=== PATIENT | female | born 1955 | race Caucasian/White ===

== ENCOUNTER → 2024-04-18 06:25 | Day surgery (SDC) | payer BC, SELFPAY ==
[2024-04-18 09:07] LABS: Glucose - Point of Care 122 mg/dl (70-99)
== END ==
LOC: GI 06:25
PROVIDERS: ATTENDING PHYSICIAN Internal Medicine Gastroenterology
DX: R13.10 Dysphagia, unspecified (principal); R11.0 Nausea; K22.89 Other specified disease of esophagus; K31.89 Other diseases of stomach and duodenum; K57.30 Diverticulosis of large intestine without perforation or abscess without bleeding; K55.21 Angiodysplasia of colon with hemorrhage; K64.0 First degree hemorrhoids; K62.5 Hemorrhage of anus and rectum; R19.7 Diarrhea, unspecified
CPT/HCPCS: 45380; 43239; 88305; 82962; 88342

== ENCOUNTER → 2024-04-22 08:29 | Outpatient (REF) | payer BC, SELFPAY | LOC: HWRAD 08:29 | PROVIDERS: ATTENDING PHYSICIAN Internal Medicine Gastroenterology; FAMILY PHYSICIAN Physician Assistant Medical | DX: E66.01 Morbid (severe) obesity due to excess calories (principal) | CPT/HCPCS: 76700 ==

== ENCOUNTER 2024-05-27 02:41 | Inpatient (IN) | payer BC, SELFPAY ==
[2024-05-26 21:26] VITALS: BP 123/87
[2024-05-26 21:47] LABS: % Basophils 0.6 % (0-2); % Eosinophils 1.7 % (0-6); % Immature Granulocytes 0.8 % (0-0.5); % Lymphocytes 13.3 % (20.5-51.1); % Monocytes 6.1 % (1.7-9.3); % Neutrophils 77.5 % (42.2-75.2); Absolute Basophils 0.1 10^3/uL (0-0.2); Absolute Eosinophils 0.3 10^3/uL (0-0.7); Absolute Immature Granulocytes 0.1 10^3/uL (0-0.05); Absolute Lymphocytes 2.3 10^3/uL (1.2-3.4); Absolute Neutrophils 13.1 10^3/uL (1.4-6.5); Hematocrit 39.7 % (37.0-47.0); Hemoglobin 13.2 g/dL (12.0-16.0); Mean Corp Hgb Conc. 33.2 g/dL (33.0-37.0); Mean Corpuscular Hgb 30.2 pg (27.0-31.0); Mean Corpuscular Volume 90.8 fL (81.0-99.0); Mean Platelet Volume 10.1 fL (7.4-10.4); Nucleated Red Blood Cells % 0 %; Platelet Count 301 10^3/uL (130-400); Red Blood Cell Count 4.37 10^6/uL (4.20-5.40); Red Cell Dist. Width 13.6 % (11.5-14.5); White Blood Cell Count 16.9 10^3/uL (4.8-10.8)
[2024-05-26 22:00] LABS: ALT (SGPT) 25 U/L (0-35); AST (SGOT) 31 U/L (14-36); Albumin 4.1 g/dl (3.5-5.0); Alkaline Phosphatase 82 U/L (38-126); Blood Urea Nitrogen 19 mg/dl (7-17); Calcium 10.5 mg/dl (8.4-10.2); Carbon Dioxide 30 mmol/L (22-30); Chloride 99 mmol/L (98-107); Glucose 183 mg/dl (70-99); Potassium 4.2 mmol/L (3.5-5.1); Sodium 139 mmol/L (135-145); Total Bilirubin 0.8 mg/dl (0.2-1.3); Total Protein 7.3 g/dl (6.3-8.2); eGFR 54.73
[2024-05-26 22:13] LABS: Troponin I < 0.012 ng/ml
[2024-05-26 22:54] VITALS: BP 114/73
[2024-05-26 23:00] VITALS: BP 114/71
[2024-05-26 23:01] VITALS: BMI 40.5
[2024-05-26 23:35] VITALS: BP 138/70
[2024-05-26 23:36] LABS: NT-proBNP 63.6 pg/ml
[2024-05-26] MEDS: DUONEB 3 ML INH (23:39)
[2024-05-27] VITALS (15 sets, daily range): BP systolic 94–128; BP diastolic 54–86; BMI 39.6
[2024-05-27] MEDS: DUONEB 3 ML INH ×6 (00:39→19:39)
--- NOTE | 2024-05-27 01:50 | ED.GENMED ---
History of Present Illness
General
Chief Complaint: Chest Pain
Source: patient and family
Time Seen by Provider: 05/26/24 22:38
History of Present Illness
History of Present Illness:
68-year-old female with a history of diabetes, asthma, obstructive sleep apnea who presents with left lower extremity swelling. Patient also reports some chest pain and back pain and pain with breathing deeply. She also feels short of breath.
Family states she does appear more short of breath than usual. She does have a history of asthma. She often wears CPAP and oxygen at night. No fevers.
Past History
Past History
ED Past Medical History: Asthma, GERD, HTN, Hypercholesterolemia, IDDM and Other (Diverticulitis with perf and abscess, Hemorroids, Sleep apnea and uses CPAP, PNA, renal calcluls, retroperitoneal pericolonic abcess with drainage)
ED Past Surgical History: (X 2)
Social History
Tobacco: Non-smoker
Alcohol: None
Personal:
Living: with family
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
Family History
Family History: CAD (Several brothers as well as mother with history of coronary artery disease.)
Phy Exam
Physical Exam
Physical Exam:
CONSTITUTIONAL Patient alert and oriented to person, place and time. Well-appearing. Vital signs reviewed.
HEAD atraumatic, normocephalic.
EYES eyelids normal to inspection, , Extraocular muscles intact, Conjunctiva normal, Sclera normal.
NECK normal range of motion, Trachea midline, no jugular venous distention.
RESPIRATORY CHEST mild respiratory distress noted, Chest expansion equal, poor air movement bilateral
CARDIOVASCULAR regular and tachycardic, Heart sounds normal.
BACK normal inspection, no obvious deformities
UPPER EXTREMITY range of motion normal, Motor strength normal, no cyanosis, no edema.
LOWER EXTREMITY range of motion normal, Motor strength normal, no cyanosis, left lower extremity is markedly more swollen than the right. There is a scabbed lesion to the anterior tineo. There is a diffuse mild redness and increased warmth of the
left lower extremity. Normal perfusion bilaterally.
NEURO Speech normal, No focal motor deficits, Ellington coma scale 15, Memory normal, Cranial Nerves intact to screening exam.
SKIN skin warm, dry, and normal in color.
PSYCHIATRIC patient oriented to person place and time, Normal affect.
Scores
Heart Score for Chest Pain Patients
STEMI patient?: No
History: Slightly or Non-Suspicious
ECG: Normal
Age: >/= 65 years
Risk Factors: >/= 3 Risk Factors or History of CAD
Troponin: </= Normal Limit
Heart Score for Chest Pain Patients: 4
Heart Score Risk: 20.3% MACE over next 6 weeks
Course
Orders/Labs/Results
Orders:
Orders
05/26/24 21:19
Electrocardiogram (*1) Routine
Reason for Study: Chest Pain
EKG- Treatment ONCE
05/26/24 21:37
Complete Blood Count/With Diff Urgent
Comprehensive Metabolic Panel Urgent
NT-proBNP Urgent
Comment: ADD ON
Troponin I Urgent
05/26/24 22:51
CT Chest Pe Study Urgent
Comment:
Reason For Exam: CP, sob, Leg swelling
05/26/24 22:52
Add On- LAB Urgent
Tests Added?: bnp
05/26/24 23:38
Ipratropium/Albuterol Sulfate [Duoneb] 3 ml .ROUTE .STK-MED ONE
Ipratropium/Albuterol Sulfate [Duoneb] 3 ml INH R NOW ONE
05/27/24 00:00
US Periph Venous LOWER Ext LT Urgent
Reason For Exam: swelling
05/27/24 00:23
Ipratropium/Albuterol Sulfate [Duoneb] 3 ml INH R NOW ONE
Ipratropium/Albuterol Sulfate [Duoneb] 3 ml INH R NOW STA
05/27/24 01:48
Dexamethasone Sod Phosphate [Decadron] 10 mg IV NOW STA
05/27/24 01:49
Vancomycin [Vancocin] 2,000 mg 0.9% Sodium Chloride 500 ml [Nss] 500 ml IV NOW
Abnormal Lab Results
05/26/24
21:37
WBC 16.9 H 10^3/uL
(4.8-10.8)
Abs Immat Gran (auto) 0.1 H 10^3/uL
(0-0.05)
Absolute Neuts (auto) 13.1 H 10^3/uL
(1.4-6.5)
Absolute Monos (auto) 1.0 H 10^3/uL
(0.1-0.6)
Immature Gran % 0.8 H %
(0-0.5)
Neutrophils % 77.5 H %
(42.2-75.2)
Lymphocytes % 13.3 L %
(20.5-51.1)
BUN 19 H mg/dl
(7-17)
Creatinine 1.1 H mg/dL
(0.6-1.0)
Glucose 183 H mg/dl
(70-99)
Calcium 10.5 H mg/dl
(8.4-10.2)
05/26/24 21:37
05/26/24 21:37
Vital Signs
Initial and Last Documented VS:
Initial Vital Signs
Temp Pulse Resp BP Pulse Ox
98 F 112 22 123/87 97
05/26/24 21:26 05/26/24 21:26 05/26/24 21:26 05/26/24 21:26 05/26/24 21:26
Last Documented Vital Signs
Temp Pulse Resp BP Pulse Ox
98 F 114 26 94/78 95
05/26/24 21:26 05/27/24 01:00 05/27/24 01:00 05/27/24 01:00 05/27/24 01:00
MDM/Problems Addressed
MDM/Problems Addressed:
Acute cellulitis, acute hyperglycemia, acute asthma exacerbation
*Radiology
Radiology exam reviewed: radiology read reviewed
*Pulse Oximetry
Patient hypoxic: yes (Mild)
*EKG
Interpreted by ED Provider?: Yes
Interpretation: abnormal
Rate: tachycardiac
Rhythm: sinus
[place]: normal axis
Ischemia: no ischemia
*Charge Entry Interpretation
Rate: tachycardiac
Interpretation: abnormal
Rhythm: sinus
*Critical Care Note
Total Time (30-74mins, 75-104mins- exclusive of procedures): Not Applicable
Data Reviewed
Review of Other/Old Records Reveals: Discharge Summary (Prior discharge summary reviewed)
Source: patient and family
Patient Management
Discussion with other providers: Hospitalist
Escalation/DeEscalation of care consider admission/obs:
68-year-old female presents with left lower extremity swelling. Knox concern was for PE and DVT. However, PE study and DVT study negative luckily. On reassessment her left lower extremity is more red than the right when compared. Given her
leukocytosis, cyst cellulitis. Also after bronchodilator she does feel that her breathing is improved. Cover with Decadron. Concern of tremor in light of history of diabetes.
ED Attending Note
-
Portions of this chart may have been created with voice recognition software.� Occasional wrong word or��sound alike� substitutions may have occurred due to the inherent limitations of voice recognition software.
Discharge Plan
Departure
Patient Disposition: Admit
Date of Disposition: 05/27/24
Time of Disposition: 01:51
Admit to: Telemetry
Presentation/result/management discussed w/ accepting MD/DO: Hospitalist
Discharge Problem:
Cellulitis, Acute asthma exacerbation
Prescriptions:
No Action
venlafaxine [Effexor XR] 150 MG capsule,extended release 24hr
150 mg PO QPM
metformin 500 mg Tablet Extended Release 24 Hr
500 mg PO QPM
Humalog U-100 Insulin 100 unit/mL Cartridge
1 sliding scale dose SC DIRECTED
Humalog U-100 Insulin 100 unit/mL Cartridge
0 unit SC Q1H
Patient Comments:
VARYING BASAL RATE
rosuvastatin 40 mg Tablet
40 mg PO QPM
Gemtesa 75 mg Tablet
75 mg PO QPM
ipratropium-albuterol 0.5 mg-3 mg(2.5 mg base)/3 mL Solution For Nebulization
3 ml INHALATION QID
fexofenadine 180 mg Tablet
180 mg PO QPM
fluticasone propion-salmeterol [Advair Diskus] 500-50 mcg/dose Blister With Device
2 inh INHALATION BID
albuterol sulfate [ProAir HFA] 90 mcg/actuation Hfa Aerosol Inhaler
2 puff INHALATION Q6H PRN (Reason: asthma)
budesonide
3 ml inhalation BID PRN (Reason: ASTHMA FLAIR)
aspirin 325 mg Tablet
325 mg PO DAILY Qty: 30 0RF
Rx Instructions:
Take daily x4 weeks for blood clot prevention
docusate sodium 100 mg Capsule
100 mg PO BID Qty: 30 0RF
lidocaine 4 % Adhesive Patch,Medicated
2 patch topical DAILY Qty: 30 0RF
Rx Instructions:
Over the counter. 12 hours on, 12 hours off.
Apply to sides of left hip/thigh.
oxycodone 5 mg Tablet
5 - 10 mg PO Q4H PRN (Reason: moderate-severe pain) Qty: 35 0RF
Rx Instructions:
1 tab for moderate pain, 2 if severe.
Dx total joint
sennosides [Senna Lax] 8.6 mg Tablet
17.2 mg PO BID Qty: 30 0RF
gabapentin 100 mg capsule
200 mg PO TID Qty: 30 0RF
acetaminophen [Acetaminophen Extra Strength] 500 mg tablet
1,000 mg PO Q6H Qty: 60 0RF
Rx Instructions:
DO NOT exceed >4000 mg daily.
ondansetron HCl 4 mg tablet
4 mg PO Q6H PRN (Reason: nausea and vomiting) Qty: 30 0RF
famotidine [Pepcid] 20 mg tablet
20 mg PO HS Qty: 30 0RF
Rx Instructions:
Take nightly while on full dose Aspirin to prevent GI upset.
losartan 25 mg Tablet
25 mg PO QPM Qty: 0 0RF
Rx Instructions:
HOLD IF systolic blood pressure <130 while on Oxycodone.
cefadroxil 500 mg capsule
500 mg PO DAILY Qty: 7 0RF
Rx Instructions:
Take daily starting day after discharge. Continue for 1 week.
Saccharomyces boulardii [Florastor] 250 mg capsule
250 mg PO DAILY Qty: 7 0RF
Rx Instructions:
Over the counter. Take while on antibiotic.
If unavailable, choose a different probiotic.
mupirocin 2 % ointment
1 applic intranasal BID Qty: 1 0RF
Referrals:
Pranay Dang PA-C [Family Provider] -
Interventions
Interventions:
*Risk Screen - Suicide Last Done: 05/26/24 21:26
*General Assessment Last Done: 05/26/24 21:26
*Neglect/Abuse Screening Last Done: 05/26/24 21:26
*ED COVID-19 Vaccine History Last Done: 05/26/24 23:01
ED- Cardiac Assessment Last Done: 05/26/24 23:01
Discharge Date and Time
Print Language: SAMI
--- NOTE | 2024-05-27 02:23 | HPS.HSE ---
Family Physician
-
Family Physician: Pranay Dang PA-C
Chief Complaint
-
Back Pain / Chest Pain / Cough / LE Swelling
History of Present Illness
Patient is a 68y F with PMH significant for asthma, DM-II and obesity who presents to ED complaining of back pain / chest pain and LE swelling. Patient states that her symptoms started with swelling in the LLE about 3 days ago. She denies any
significant pain, redness, injury, etc. Yesterday she also appreciated pain in the upper back. Today that pain seemed more severe and sharp. It radiated anteriorly through to the chest. Pain was worse with coughing and deep breathing. No fevers
/ chills. Patient reports cough that has been productive of 'silver' or lomas mucus.
Patient states that a client whom she saw about 8 days ago recently tested positive for COVID.
Patient administered her own home test yesterday which was reportedly negative.
Medical History
Past Medical History
Past Medical History: Reports Other
Additional Past Medical History:
DM-II
Psoriatic Arthritis
Anxiety / Depression
Asthma
NEHA on CPAP
Obesity
Hypertension
CKD III
Past Surgical History: Reports Other
Additional Past Surgical History:
Left JOSÉ LUIS
x 2
Social History
Tobacco: Non-smoker
Alcohol: None
Drug: None
Family History
Family History: Not pertinent
Allergies / Home Medications
Allergies reflects when Allergies were last updated in [facility].
Home Medications with original date entered in [facility]
Allergy/Medication List:
Allergies
Allergy/AdvReac Type Severity Reaction Status Date / Time
asparagus Allergy HIVES & Verified 05/26/24 21:31
SWELLING
banana Allergy ITCHY Verified 05/26/24 21:31
MOUTH,
THROAT
cantaloupe Allergy ITCHING, Verified 05/26/24 21:31
THROAT
SWELLNG
crab Allergy Anaphylaxis Verified 05/26/24 21:31
shellfish derived Allergy Anaphylaxis Verified 05/26/24 21:31
shrimp Allergy Anaphylaxis Verified 05/26/24 21:31
Home Medications
venlafaxine 150 mg capsule,extended release 24 hr (Effexor XR) 150 mg PO QPM Depression 10/15/12
albuterol sulfate 90 mcg/actuation aerosol inhaler (ProAir HFA) 2 puff inhalation Q6H PRN asthma 08/18/23
budesonide 3 ml inhalation BID PRN ASTHMA FLAIR 08/18/23
rosuvastatin 40 mg tablet 40 mg PO QPM High Cholesterol 08/18/23
vibegron 75 mg tablet (Gemtesa) 75 mg PO QPM Urinary Issue 08/18/23
losartan 25 mg tablet 25 mg PO QPM Blood Pressure #0 tabs 09/11/23
albuterol sulfate 2.5 mg/3 mL (0.083 %) solution for nebulization 2.5 mg inhalation QID 05/27/24
guselkumab 100 mg/mL subcutaneous auto-injector (Tremfya) 100 mg SC Q8W 05/27/24
insulin aspart U-100 100 unit/mL subcutaneous solution (Novolog U-100 Insulin aspart) 1 sliding scale dose SC DIRECTED 05/27/24
Review of Systems
-
History Source: Patient
A 12 point ROS was completed and negative except as noted: Yes
Constitutional: Reports Fatigue; Denies Fever or Chills
EENT: Denies Sore Throat
Respiratory: Reports Cough and Trouble Breathing; Denies Hemoptysis
Cardiac: Reports Chest Pain; Denies Diaphoresis or Palpitations
Abdomen/GI: Denies Abdominal Pain, Nausea, Vomiting or Diarrhea
: Reports Frequency and Incontinence (chronic); Denies Dysuria
Musculoskeletal: Reports Edema; Denies Joint Pain
Neurological: Denies Dizzy or Headache
Psych: Denies Depression or Anxiety
Physical Exam
Vital Signs
Vital Signs
Temp Pulse Resp BP Pulse Ox
98 F 114 26 94/78 95
05/26/24 21:26 05/27/24 01:00 05/27/24 01:00 05/27/24 01:00 05/27/24 01:00
Physical Exam
General: Other (68y F in no acute distress.)
HEENT: Moist mucous membranes, PERRLA and Other (Thick neck.)
Respiratory: Other (Decreased BS throughout. Scattered inspiratory rales and expiratory wheezes.)
Cardiac: S1/S2 and Regular Rhythm; No Murmur
GI: Soft, Non Tender, Non Distended, Normal Bowel Sounds and Other (Obese)
Musculoskeletal: No Clubbing, No Cyanosis and Other (Trace edema LLE. Mild erythema posterior calf without tenderness or cords. No lymphangitis.)
Neuro: AO x 3
Laboratory Results
-
05/26/24 21:37
05/26/24 21:37
Laboratory Results
Total Bilirubin 0.8 mg/dl (0.2-1.3) 05/26/24 21:37
AST 31 U/L (14-36) 05/26/24 21:37
ALT 25 U/L (0-35) 05/26/24 21:37
Alkaline Phosphatase 82 U/L (38-126) 05/26/24 21:37
Troponin I < 0.012 ng/ml 05/26/24 21:37
Impression/Plan
-
A/P: Patient is a 68y F with PMH significant for asthma, DM-II and psoriatic arthritis who presents to ED complaining of cough, pleuritic pain and LE swelling.
Atypical Pneumonia
Asthma with Acute Exacerbation secondary to the above
- Admit for further evaluation and treatment.
- CT done in the ED with no PE but does show inflammatory or infectious nodular changes in bases and RUL.
- Seems most c/w atypical pneumonia given symptoms and imaging / exam findings.
- Abx coverage including doxycycline for atypical etiologies.
- Continue IV steroids and taper as able for wheezing / asthma exacerbation.
- Continue nebs ATC and PRN.
- O2 supplementation as needed.
- Follow for clinical improvement.
- Will repeat COVID testing here as multiple risk factors / known exposure.
- Follow for clinical improvement.
LLE Swelling
- No evidence of DVT on US done in the ED.
- ? vague erythema but no other evidence for acute cellulitis, etc.
- On abx for pulmonary process as noted above.
- Follow for any clinical changes in regards to LLE.
DM-II
- Stable at present. Glucose likely to significantly increase on IV steroids.
- Patient to continue use of own insulin pump - adjust dose as needed for glycemic control.
- Update A1C.
Benign Hypertension
- BP on the low side at present and will hold home losartan for now.
- IVF support overnight.
- Follow for changes and resume BP medications when appropriate.
CKD III
- Stable. Renal function is at / near known baseline.
- Follow for any changes.
Psoriatic Arthritis
- On Tremfya every 8 weeks as an outpatient.
NEHA on CPAP
- Stable. Continue usual HS CPAP with supplemental O2.
Obesity due to excess calories
- Affects all aspects of care.
- Encourage efforts at healthy diet and increased exercise with goal of weight loss.
DVT Prophylaxis: Lovenox
Code Status: Full
[2024-05-27] MEDS: DECADRON 10 MG IV (02:56)
[2024-05-27 03:09] LABS: COVID-19 Antigen Negative (Negative)
[2024-05-27] MEDS: VANCOCIN 540 MG IV (04:03)
[2024-05-27 04:58] LABS: Glucose - Point of Care 197 mg/dl (70-99)
[2024-05-27 05:42] LABS: Hematocrit 37.1 % (37.0-47.0); Hemoglobin 12.3 g/dL (12.0-16.0); Mean Corp Hgb Conc. 33.2 g/dL (33.0-37.0); Mean Corpuscular Hgb 30.2 pg (27.0-31.0); Mean Corpuscular Volume 91.2 fL (81.0-99.0); Mean Platelet Volume 10.1 fL (7.4-10.4); Platelet Count 285 10^3/uL (130-400); Red Blood Cell Count 4.07 10^6/uL (4.20-5.40); Red Cell Dist. Width 13.7 % (11.5-14.5); White Blood Cell Count 15.8 10^3/uL (4.8-10.8)
[2024-05-27 06:01] LABS: Blood Urea Nitrogen 16 mg/dl (7-17); Calcium 9.8 mg/dl (8.4-10.2); Carbon Dioxide 24 mmol/L (22-30); Chloride 103 mmol/L (98-107); Estimated Creatinine Clearance 54 ml/min; Glucose 211 mg/dl (70-99); HDL Cholesterol 57 mg/dl; LDL Cholesterol, Calculated 59 mg/dl; Sodium 140 mmol/L (135-145); Total Cholesterol 151 mg/dl (50-199); Triglyceride 175 mg/dl (10-149); Very Low Density Lipoprotein 35 mg/dl (0-30); eGFR 54.73
[2024-05-27 06:13] LABS: Troponin I < 0.012 ng/ml
[2024-05-27] MEDS: ROCEPHIN 1000 MG IV (07:40)
[2024-05-27] MEDS: STERILE WATER FOR INJECTION 10 ML IV (07:40)
[2024-05-27] MEDS: NSS 1000 IV ×2 (07:41→16:00)
--- NOTE | 2024-05-27 08:44 | TRANSFER ---
Pt admitted to the unit from ED with IV fluids infusing. Pt ambulated self to bed from stretcher. Pt denies pain. Pt reports chest pain resolved prior to admitted to unit. Pt reported some nausea. Pt reports SOB improved with treatment in ED. AAXO3.
Pt oriented to room with call flores in reach. Plan of care ongoing.
[2024-05-27] MEDS: PROTONIX 40 MG PO (08:53)
[2024-05-27] MEDS: VIBRAMYCIN 100 MG PO ×2 (08:53→19:58)
--- NOTE | 2024-05-27 09:02 | PN.DE.MGMTRT ---
Insulin Management
- -
05/27/2024: Diabetes Management Consult
68 year old female who presented to the hospital with c/o cough, pleuritic pain and LE swelling admitted due to Atypical PNA and Acute Asthma Exacerbation.
PMH: HTN, HLD, Asthma/NEHA, H/o GIB/Diverticular, Depression, ADHD, Osteopenia, Morbid obesity, BMI 39.2 and IDDM, uses insulin pump- Tandem T-Slim with control IQ, Humalog insulin and CGM-Dexcom G7 for management. She routinely sees Endo- .
Adilson, reports last A1C was ~ 7.8% 2 months ago.
Pt awake, alert and oriented, resting in bed, coughing, able to discuss diabetes management.
Pt was started on steroids- Decadron 4mg Q12 hrs, contributing to persistent Hyperglycemia
Current glucose is 312 via her CGM. Bedside pump work sheet shows pt administered 10 units bolus for 85g of CHO and a blood sugar of 270 at breakfast.
Discussed with Pt and advised 20-30% increase of her basal rate while on steroids and pt was agreeable.
Advised pt to adm 5 units bolus NOW for a blood sugar of 312 (should have been 11 units, dose reduced to avoid hypoglycemia)
Current insulin pump settings as follows:
Basal ICR ISF Target
12am-5am 2.5 1:5 1:20 110
5am -12p 2.5 1:4.5 1:18 110
12p - 5p 2.5 1:3.5 1:18 110
5p - 12am 2.99 1:4 1:18 110
Insulin duration 5 hrs
Total 24hr insulin 63.43 units. States she uses a total of 100 units a day. Instructed pt to ask to bring in a new insulin vial.
Explained to pt that nursing staff will have to check her blood sugar AC/HS and that glucose reading is based on the hospital glucose monitor and not her CGM.
Will closely follow and adjust pump settings as steroids get tapered down.
Reviewed and explained use of bedside insulin pump log with both pt and Pt's Nurse.
Diabetes History
- -
Type of Diabetes: 2 requiring insulin
Pre-Admission Diabetes Regimen
05/26/24 05/27/24
21:37 05:20
Creatinine 1.1 H 1.1 H
Insulin Pump Settings
IP Diabetes Regimen
05/26/24 05/27/24 05/27/24
21:37 04:56 05:20
Glucose 183 H 211 H
POC Glucose 197 H
Patient Education
[2024-05-27 09:28] LABS: Glycohemoglobin (HgbA1c) 7.9 % (4.0-5.6)
[2024-05-27 10:37] LABS: Glucose - Point of Care 319 mg/dl (70-99)
[2024-05-27] MEDS: PT'S OWN INSULIN PUMP - NovoLOG 13.29 UNIT SC (10:41)
[2024-05-27 11:16] LABS: Troponin I < 0.012 ng/ml
--- NOTE | 2024-05-27 11:33 | CM ---
Met with patient at bedside; initial assessment completed
Pharmacy verified: [facility] @ [address] [place] [address]
Patient reported that she and her spouse live in a multilevel home; 1 step to enter; 15 steps between floors
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 Has severe Asthma; reports wheezing at times going up stairs
DME: Oxygen via CPAP 2 HS; Nebulizer; Continuous Glucose Monitor and Insulin Pump. 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
Member of Family will transport home
Plan: Discharge to home when medically stable; CM will monitor for needs/services
--- NOTE | 2024-05-27 11:51 | W.PN.HOSP.TC ---
Today's Communication/Plan
-
Continue antibiotics and IV corticosteroids for another 24 hours.
Assessment / Plan
Assessment / Plan
Impression
Patient is a 68y F with PMH significant for asthma, DM-II and psoriatic arthritis who presents to ED complaining of cough, pleuritic pain and LE swelling.
Asthma exacerbation
Bronchitis, possibly atypical pneumonia
Left lower extremity swelling.
Conditions prior to admission:
IDDM on insulin pump
Essential hypertension
CKD stage III.
Psoriatec arthritis treated with Biologics.
Obstructive sleep apnea on CPAP.
Obesity due to excessive calories with BMI of 39.
Plan:
Shortness of breath, nonproductive cough.
CT scan of the chest negative for PE, bibasilar nodularities noted with no focal consolidation.
COVID-negative
Immunosuppressed with diabetes as well as Biologics given for psoriatic arthritis
Initiated on ceftriaxone/doxycycline
Initiated on systemic steroids
Reports significant improvement of respiratory symptoms and peripheral edema since admission.
Continue antibiotics and IV corticosteroids for another 24 to 48 hours. If consistent improvement, consider transition and complete course as outpatient
Ambulatory pulse ox check prior to discharge
Left lower extremity swelling
Ultrasound negative for DVT.
Erythema improved.
IDDM
Hemoglobin A1c 7.9
Insulin pump continued
Expected hyperglycemia while on systemic steroids.
Diabetic MANAGER EMPLOYEE RELATIONS consulted.
Benign Hypertension
- BP on the low side at present and will hold home losartan for now.
- IVF support overnight.
- Follow for changes and resume BP medications when appropriate.
CKD III
- Stable. Renal function is at / near known baseline.
- Follow for any changes.
Psoriatic Arthritis
- On Tremfya every 8 weeks as an outpatient.
NEHA on CPAP
- Stable. Continue usual HS CPAP with supplemental O2.
Obesity due to excess calories
- Affects all aspects of care.
- Encourage efforts at healthy diet and increased exercise with goal of weight loss.
DVT Prophylaxis: Lovenox
Code Status: Full
Anticipated Discharge: 24 - 48 hours
Subjective/Interval History
-
Date of Service: May 27, 2024
Objective Data
-
Labs:
Laboratory Results
05/27/24
05:20
WBC 15.8 H
Hgb 12.3
Hct 37.1
Plt Count 285
Sodium 140
Potassium 4.0
Chloride 103
Carbon Dioxide 24
BUN 16
Creatinine 1.1 H
Glucose 211 H
Calcium 9.8
Vital Signs:
Vital Signs
Temp Pulse Resp BP Pulse Ox
98.8 F 103 18 124/70 95
05/27/24 11:25 05/27/24 11:36 05/27/24 11:36 05/27/24 11:25 05/27/24 11:36
Physical Exam
-
General: Well Developed and No Apparent Distress
HEENT: Normocephalic, Atraumatic and Moist Mucous Membranes
Respiratory: Clear to Auscultation; Negative Wheezes or Rhonchi
Cardiac: Regular Rhythm and S1/S2; Negative Murmur, Rub or Gallop
GI: Soft, Nontender, Nondistended and Normal Bowel Sounds; Negative Organomegaly
Rectal: Deferred by Provider
Musculoskeletal: No Clubbing, No Cyanosis and No Edema
Skin: Negative Rash
Neuro: Nonfocal/Grossly Intact
[2024-05-27] MEDS: DECADRON 4 MG IV (13:07)
[2024-05-27] MEDS: PT'S OWN INSULIN PUMP - NovoLOG 15 UNIT SC (17:21)
[2024-05-27] MEDS: EFFEXOR XR 150 MG PO (17:25)
[2024-05-27] MEDS: LOVENOX 40 MG SC (17:25)
[2024-05-27 20:29] LABS: Troponin I < 0.012 ng/ml
[2024-05-27 22:09] LABS: Glucose - Point of Care 374 mg/dl (70-99)
[2024-05-27] MEDS: PT'S OWN INSULIN PUMP - NovoLOG 12.75 UNIT SC (22:12)
[2024-05-28] MEDS: NSS 1000 IV (02:17)
[2024-05-28] MEDS: DECADRON 4 MG IV (02:21)
[2024-05-28 03:09] VITALS: PULSE 91
[2024-05-28 03:52] VITALS: BP 108/70
[2024-05-28] MEDS: ROCEPHIN 1000 MG IV (05:59)
[2024-05-28 06:00] VITALS: BMI 40.7
[2024-05-28] MEDS: STERILE WATER FOR INJECTION 10 ML IV (06:00)
--- NOTE | 2024-05-28 06:14 | PTCARENOTE ---
05/27 standing scale weight 98.146kg. 05/28 standing scale weight 100.839kg. sewer bricklayer notified. ivf on hold. will monitor
[2024-05-28] MEDS: PT'S OWN INSULIN PUMP - NovoLOG 6.67 UNIT SC (07:24)
[2024-05-28 07:30] VITALS: BP 134/87
[2024-05-28] MEDS: PROTONIX 40 MG PO (07:39)
[2024-05-28] MEDS: VIBRAMYCIN 100 MG PO (07:39)
[2024-05-28] MEDS: TYLENOL 650 MG PO (07:41)
[2024-05-28 07:46] LABS: Glucose - Point of Care 272 mg/dl (70-99)
[2024-05-28] MEDS: DUONEB 3 ML INH ×2 (08:01→11:22)
[2024-05-28 11:10] VITALS: BP 126/75
[2024-05-28 11:49] LABS: Glucose - Point of Care 294 mg/dl (70-99)
[2024-05-28] MEDS: PT'S OWN INSULIN PUMP - NovoLOG 7.76 UNIT SC (11:52)
--- NOTE | 2024-05-28 11:59 | W.PN.HOSP.TC ---
Today's Communication/Plan
-
Ok for DC today
Assessment / Plan
Assessment / Plan
Impression
Patient is a 68y F with PMH significant for asthma, DM-II and psoriatic arthritis who presents to ED complaining of cough, pleuritic pain and LE swelling.
Asthma exacerbation
Bronchitis, possibly atypical pneumonia
Left lower extremity swelling.
Conditions prior to admission:
IDDM on insulin pump
Essential hypertension
CKD stage III.
Psoriatec arthritis treated with Biologics.
Obstructive sleep apnea on CPAP.
Obesity due to excessive calories with BMI of 39.
Plan:
Shortness of breath, nonproductive cough.
CT scan of the chest negative for PE, bibasilar nodularities noted with no focal consolidation.
COVID-negative
Immunosuppressed with diabetes as well as Biologics given for psoriatic arthritis
Initiated on ceftriaxone/doxycycline
Initiated on systemic steroids
Reports significant improvement of respiratory symptoms and peripheral edema since admission.
home O2 testing and possible DC today
Day 2/5 antibiotics - Cef/Doxy - will DC on Cefdinir/Doxy and prednisone taper
Left lower extremity swelling
Ultrasound negative for DVT.
Erythema improved.
IDDM
Hemoglobin A1c 7.9
Insulin pump continued
Expected hyperglycemia while on systemic steroids.
Diabetic VP OF DIG[employer] MARKET[employer] consulted.
Benign Hypertension
- BP on the low side at present and will hold home losartan for now - OK to resume at DC
- IVF support overnight.
- Follow for changes and resume BP medications when appropriate.
CKD III
- Stable. Renal function is at / near known baseline.
- Follow for any changes.
Psoriatic Arthritis
- On Tremfya every 8 weeks as an outpatient.
NEHA on CPAP
- Stable. Continue usual HS CPAP with supplemental O2.
Obesity due to excess calories
- Affects all aspects of care.
- Encourage efforts at healthy diet and increased exercise with goal of weight loss.
DVT Prophylaxis: Lovenox
Code Status: Full
Anticipated Discharge: Today
Subjective/Interval History
-
Date of Service: May 28, 2024
feeling better
wants to go home
Objective Data
-
Vital Signs:
Vital Signs
Temp Pulse Resp BP Pulse Ox
97.1 F 105 16 126/75 96
05/28/24 11:10 05/28/24 11:24 05/28/24 11:24 05/28/24 11:10 05/28/24 11:24
I&O
05/27/24 05/28/24 05/29/24
06:59 06:59 06:59
Intake Total 2890 / 2890
Balance 2890 / 2890
Review of Systems
-
History Source: Patient
All other systems: Reviewed and negative
Physical Exam
-
General: Well Developed and No Apparent Distress
HEENT: Normocephalic, Atraumatic and Moist Mucous Membranes
Respiratory: Clear to Auscultation; Negative Wheezes or Rhonchi
Cardiac: Regular Rhythm and S1/S2; Negative Murmur, Rub or Gallop
GI: Soft, Nontender, Nondistended and Normal Bowel Sounds; Negative Organomegaly
Rectal: Deferred by Provider
Musculoskeletal: No Clubbing, No Cyanosis and No Edema
Skin: Negative Rash
Neuro: Nonfocal/Grossly Intact
Data Reviewed
-
Diagnostic Radiology: Report Reviewed by me
Labs: Labs Reviewed by me
[2024-05-28] MEDS: DELTASONE 40 MG PO (12:19)
--- NOTE | 2024-05-28 12:25 | W.DS.TRANS ---
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
-
Discharge Instructions:
Discharge Diagnosis/Procedures acute bronchitis, asthma exacerbation
Diet Diabetic, Carb Controlled
Activity As tolerated
Driving Restrictions As prior to admission
Bathing Restrictions None
Instructions:
Stand-Alone Forms:
Changes to Home Medications: Yes
Discharge Medications:
DC Medications w/original date entered in [employer]
venlafaxine 150 mg capsule,extended release 24 hr (Effexor XR) 150 mg PO QPM Depression 10/15/12
albuterol sulfate 90 mcg/actuation aerosol inhaler (ProAir HFA) 2 puff inhalation Q6H PRN asthma 08/18/23
budesonide 3 ml inhalation BID PRN ASTHMA FLAIR 08/18/23
rosuvastatin 40 mg tablet 40 mg PO QPM High Cholesterol 08/18/23
vibegron 75 mg tablet (Gemtesa) 75 mg PO QPM Urinary Issue 08/18/23
losartan 25 mg tablet 25 mg PO QPM Blood Pressure #0 tabs 09/11/23
albuterol sulfate 2.5 mg/3 mL (0.083 %) solution for nebulization 2.5 mg inhalation QID Lung/Breathing Issues 05/27/24
guselkumab 100 mg/mL subcutaneous auto-injector (Tremfya) 100 mg SC Q8W Antipsoriatic Agent 05/27/24
insulin aspart U-100 100 unit/mL subcutaneous solution (Novolog U-100 Insulin aspart) 1 sliding scale dose SC DIRECTED Diabetes 05/27/24
cefdinir 300 mg capsule 300 mg PO Q12H #10 caps 05/28/24
doxycycline hyclate 100 mg capsule 100 mg PO Q12 #11 caps 05/28/24
prednisone 10 mg tablet 10 mg PO DIRECTED #16 tabs 05/28/24
Home Medication Changes
You have 5 more days of antibiotics. Take first dose of Doxycycline this evening and Cefdinir tomorrow morning.
Prednisone taper:
Take 40mg (4 tabs) 05/29 then 30mg (3 tabs) x 2 days; 20mg (2 tabs) x 2 days; 10mg (1 tab) x 2 days
Pending Results: No
--- NOTE | 2024-05-28 12:44 | CM ---
Patient seen bedside.
Patient denies home care needs.
IMM completed.
Spouse wilol transport.
Plan: home no needs.
--- NOTE | 2024-05-28 13:37 | W.DCSUMMARY ---
Discharge Summary
Discharge Data
Date of Admission: 05/27/24
Date of Discharge: 05/28/24
-
Pending Results: No
Hospital Course
Discharging Physician : Dr. Janice Arceo
Disposition : Home
Primary care physician : Dr. Pranay Dang
Principal Discharge diagnosis : acute bronchitis, asthma exacerbation
Hospital Course :
Ms. Berenice Mercedes is a 68 yo woman with hx asthma, DM II, obesity who presents to the ER complaining of chest discomfort and LLE swelling. Triage vitals significant for tachycardia, WBC 16.9. She required supplemental O2. CTA w/o out PE, finding of
minimal airway thickening and bronchiectasis. She was admitted to medicine for treatment of acute bronchitis and asthma exacerbation. Symptoms improved with antibiotics and steroids. She was weaned off of oxygen. Ambulated with respiratory
without drop in O2. She is discharged on Cefdinir/Doxy x 5 more days and prednisone taper.
Regarding abnormal chest CT, multiple peripheral nodules with concern for asbestos related pleural disease. Patient can be referred to pulmonary as outpatient.
Time spent on discharge was 32 minutes.
Important imaging findings :
CHEST CT 05/26/24
IMPRESSION:
1. No evidence of pulmonary embolism or thoracic aortic dissection.
2. Multiple peripheral nodules, most pronounced at each lung base. 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
3. Mild airway thickening and bronchiectasis at each lung base, similar compared to distant prior CT dated 01/08/24. Findings are suggestive of chronic airways disease.
4. Mild coronary arterial calcification. Please correlate with symptoms of and risk factors for coronary artery disease, with further workup as clinically appropriate.
LE US 05/27/24
IMPRESSION:
No evidence of left lower extremity deep venous thrombosis from the common femoral through the upper calf veins.
Procedure findings :
Discharge Plan
-
Patient Disposition: Home (Routine Discharge)
Discharge Diagnosis/Procedures: acute bronchitis, asthma exacerbation
Diet: Diabetic, Carb Controlled
Activity: As tolerated
Driving Restrictions: As prior to admission
Bathing Restrictions: None
Referrals:
Pranay Dang PA-C [Family Provider] - in less than 1 week
Additional Discharge Medication Instructions: You have 5 more days of antibiotics. Take first dose of Doxycycline this evening and Cefdinir tomorrow morning.
Prednisone taper:
Take 40mg (4 tabs) 8 then 30mg (3 tabs) x 2 days; 20mg (2 tabs) x 2 days; 10mg (1 tab) x 2 days
Prescriptions:
New
doxycycline hyclate 100 mg Capsule
100 mg PO Q12 Qty: 11 0RF
cefdinir 300 mg capsule
300 mg PO Q12H Qty: 10 0RF
Rx Instructions:
first dose morning of 05/29/24
prednisone 10 mg tablet
10 mg PO DIRECTED Qty: 16 0RF
Rx Instructions:
Take 40mg (4 tabs) 8 then 30mg (3 tabs)x2 days; 20mg (2 tabs)x2 days; 10mg (1 tab)x2 days
Continued
venlafaxine [Effexor XR] 150 MG capsule,extended release 24hr
150 mg PO QPM
rosuvastatin 40 mg Tablet
40 mg PO QPM
Gemtesa 75 mg Tablet
75 mg PO QPM
albuterol sulfate [ProAir HFA] 90 mcg/actuation Hfa Aerosol Inhaler
2 puff INHALATION Q6H PRN (Reason: asthma)
budesonide
3 ml inhalation BID PRN (Reason: ASTHMA FLAIR)
Patient Comments:
pt reports 'I haven't started this one yet.'
losartan 25 mg Tablet
25 mg PO QPM Qty: 0 0RF
Rx Instructions:
HOLD IF systolic blood pressure <130 while on Oxycodone.
albuterol sulfate 2.5 mg /3 mL (0.083 %) Solution For Nebulization
2.5 mg INHALATION QID
insulin aspart U-100 [Novolog U-100 Insulin aspart] 100 unit/mL Solution
1 sliding scale dose SC DIRECTED
Rx Instructions:
Patient's own insulin pump.
Tremfya 100 mg/mL Auto-Injector
100 mg SC Q8W
Discharge Orders:
Discharge Patient (As Directed); Ordered 05/28/24
Ordered By: Janice Arceo
Discharge Date and Time
Discharge Date/Time: 05/28/24 13:14
Print Language: TAJIK
[2024-05-30 21:32] LABS: Hepatitis C Antibody Negative (Negative)
== END 2024-05-28 13:14 | disposition home or self-care (01) | DRG 202 ==
LOC: 4 WEST ACU 02:41
PROVIDERS: ADMITTING PHYSICIAN Hospitalist; ATTENDING PHYSICIAN Student in an Organized Health Care Education/Training Program; EMERGENCY PHYSICIAN Emergency Medicine; FAMILY PHYSICIAN Physician Assistant Medical
PROC: 5A09357 Assistance with Respiratory Ventilation, Less than 24 Consecutive Hours, Continuous Positive Airway Pressure (ICD-10-PCS; 2024-05-28)
DX: J45.901 Unspecified asthma with (acute) exacerbation (principal); J18.8 Other pneumonia, unspecified organism; D84.821 Immunodeficiency due to drugs; Z68.41 Body mass index [BMI] 40.0-44.9, adult; J47.0 Bronchiectasis with acute lower respiratory infection; J20.9 Acute bronchitis, unspecified; E78.00 Pure hypercholesterolemia, unspecified; E11.22 Type 2 diabetes mellitus with diabetic chronic kidney disease; I12.9 Hypertensive chronic kidney disease with stage 1 through stage 4 chronic kidney disease, or unspecified chronic kidney disease; N18.30 Chronic kidney disease, stage 3 unspecified; K21.9 Gastro-esophageal reflux disease without esophagitis; G47.33 Obstructive sleep apnea (adult) (pediatric); T50.995A Adverse effect of other drugs, medicaments and biological substances, initial encounter; E66.09 Other obesity due to excess calories; L40.50 Arthropathic psoriasis, unspecified; F32.A Depression, unspecified; F41.9 Anxiety disorder, unspecified; Z79.899 Other long term (current) drug therapy; Z79.4 Long term (current) use of insulin; Z96.41 Presence of insulin pump (external) (internal); Z99.81 Dependence on supplemental oxygen; Z86.16 Personal history of COVID-19; Z11.52 Encounter for screening for COVID-19
CPT/HCPCS: 71275; 80048; 80053; 80061; 82962; 83036; 83880; 84484; 85025; 85027; 86803; 87811; 93005; 93971; 94640; 94660; 99285; Q9967

== ENCOUNTER 2024-07-27 06:19 | Day surgery (SDC) | payer BC, MEDICARE, SELFPAY ==
[2024-07-27] MEDS: PRED FORTE 1% EYE DROPS 1 DROP OPHTH (07:07)
[2024-07-27] MEDS: POLYTRIM OPHTHALMIC SOLUTION 1 DROP OPHTH (07:08)
[2024-07-27] MEDS: CYCLOGYL 1% EYE DROPS 1 DROP OPHTH (07:08)
[2024-07-27] MEDS: ALCAINE 0.5% EYE DROPS 1 DROP OPHTH (07:08)
[2024-07-27] MEDS: MYDRIACYL 1 DROP OPHTH (07:09)
[2024-07-27] MEDS: AKTEN OPHTHALMIC GEL 1 ML OPHTH (07:10)
[2024-07-27] MEDS: NEO-SYNEPHRINE 2.5% OPH SOL. 1 DROP OPHTH (07:10)
[2024-07-27] MEDS: ACUVAIL 1 DROPS OPHTH (07:11)
[2024-07-27 07:15] VITALS: BP 111/61; BMI 40.3
[2024-07-27 07:21] LABS: Glucose - Point of Care 155 mg/dl (70-99)
[2024-07-27 09:17] LABS: Glucose - Point of Care 134 mg/dl (70-99)
[2024-07-27 09:42] VITALS: BP 110/65
== END 2024-07-27 10:15 | disposition home or self-care (01) ==
LOC: SDS 06:19
PROVIDERS: ATTENDING PHYSICIAN Ophthalmology
DX: H25.12 Age-related nuclear cataract, left eye (principal)
CPT/HCPCS: 66984; 82962

== ENCOUNTER 2024-08-04 06:41 | Day surgery (SDC) | payer BC, SELFPAY ==
[2024-08-04 12:38] VITALS: BMI 41.6
[2024-08-04 12:40] VITALS: BMI 41.6
[2024-08-04] MEDS: ALCAINE 0.5% EYE DROPS 1 DROP OPHTH (12:40)
[2024-08-04] MEDS: NEO-SYNEPHRINE 2.5% OPH SOL. 1 DROP OPHTH (12:40)
[2024-08-04] MEDS: POLYTRIM OPHTHALMIC SOLUTION 1 DROP OPHTH (12:40)
[2024-08-04] MEDS: CYCLOGYL 1% EYE DROPS 1 DROP OPHTH (12:40)
[2024-08-04] MEDS: MYDRIACYL 1 DROP OPHTH (12:40)
[2024-08-04] MEDS: ACUVAIL 10 DROPS OPHTH (12:40)
[2024-08-04] MEDS: PRED FORTE 1% EYE DROPS 1 DROP OPHTH (12:40)
[2024-08-04 12:41] VITALS: BP 96/59
[2024-08-04 12:50] LABS: Glucose - Point of Care 113 mg/dl (70-99)
[2024-08-04] MEDS: AKTEN OPHTHALMIC GEL 1 ML OPHTH (12:57)
[2024-08-04 13:52] VITALS: BP 108/64
[2024-08-04 14:00] LABS: Glucose - Point of Care 80 mg/dl (70-99)
[2024-08-04 14:23] VITALS: BP 100/65
== END 2024-08-04 14:35 | disposition home or self-care (01) ==
LOC: SDS 06:41
PROVIDERS: ATTENDING PHYSICIAN Ophthalmology
DX: H25.11 Age-related nuclear cataract, right eye (principal); H40.1110 Primary open-angle glaucoma, right eye, stage unspecified
CPT/HCPCS: 65820; 66984; 82962

== ENCOUNTER 2024-09-08 09:14 | Inpatient (IN) | payer BC, MEDICARE, SELFPAY ==
[2024-08-10 11:10] LABS: Hematocrit 41.9 % (37.0-47.0); Mean Corpuscular Hgb 30.2 pg (27.0-31.0); Mean Corpuscular Volume 97.4 fL (81.0-99.0); Platelet Count 296 10^3/uL (130-400); Red Cell Dist. Width 14.2 % (11.5-14.5); White Blood Cell Count 10.2 10^3/uL (4.8-10.8)
[2024-08-10 12:12] LABS: ALT (SGPT) 24 U/L (0-35); AST (SGOT) 29 U/L (14-36); Albumin 4.1 g/dl (3.5-5.0); Alkaline Phosphatase 81 U/L (38-126); Blood Urea Nitrogen 20 mg/dl (7-17); Calcium 9.3 mg/dl (8.4-10.2); Carbon Dioxide 29 mmol/L (22-30); Chloride 101 mmol/L (98-107); Glucose 105 mg/dl (70-99); Sodium 143 mmol/L (135-145); Total Bilirubin 0.4 mg/dl (0.2-1.3); Total Protein 7.2 g/dl (6.3-8.2); eGFR 49.31
[2024-08-10 13:16] VITALS: BMI 38.7
[2024-08-11 14:02] LABS: Glycohemoglobin (HgbA1c) 7.7 % (4.0-5.6)
[2024-09-05 14:45] VITALS: BMI 38.7
[2024-09-08] VITALS (17 sets, daily range): BP systolic 86–129; BP diastolic 45–95; PULSE 97–99; O2SAT 97
[2024-09-08] MEDS: CELEBREX 200 MG PO (08:54)
[2024-09-08] MEDS: TYLENOL 650 MG PO ×4 (08:54→19:41)
[2024-09-08] MEDS: DUONEB 3 ML INH (09:03)
[2024-09-08 09:18] LABS: Glucose - Point of Care 197 mg/dl (70-99)
[2024-09-08] MEDS: VANCOCIN 530 MG IV (09:25)
[2024-09-08] MEDS: NORMOSOL-R/PLASMALYTE-A 1000 IV ×3 (09:29→13:09)
--- NOTE | 2024-09-08 10:10 | W.PN.UPDATE ---
Update Note
Progress Note Update
R TKA Dr. Ocampo 09/08/24
NEHA
Asthma
Hx bronchitis requiring admission
-Incentive spirometry+ standing order nebs+ cpap-monitor sats
Morbid Obesity
Type 2 IDDM-A1C 7.7
-has indwelling insulin pump-add Novolog coverage given hyperglycemic effect of surgery and infection risk
-+Cefadroxil ppx outpatient
Psoriatic arthritis--hold Tremfya 3 weeks p/o due to immunosuppression
Hx MRSA-Vanco w/ Ancef quyen-op
CKD 3-avoid nephrotoxic agents
Urinary incontinence/retention-indwelling bladder stim-monitor voids
--- NOTE | 2024-09-08 10:27 | W.DS.TRANS ---
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
-
Discharge Instructions:
Discharge Diagnosis/Procedures R TKA Dr. Ocampo 09/08/24
Diet Diabetic, Carb Controlled
Activity With Walker
Driving Restrictions No driving
Bathing Restrictions OK to Shower
Other Services PT
Instructions:
Stand-Alone Forms: Total Hip/Knee Replacement D/C
Changes to Home Medications: Yes
Discharge Medications:
DC Medications w/original date entered in [employer]
venlafaxine 150 mg capsule,extended release 24 hr (Effexor XR) 150 mg PO QPM Depression 10/15/12
rosuvastatin 40 mg tablet 40 mg PO QPM High Cholesterol 08/18/23
vibegron 75 mg tablet (Gemtesa) 75 mg PO QPM Urinary Issue 08/18/23
losartan 25 mg tablet 25 mg PO QPM Blood Pressure #0 tabs 09/11/23
albuterol sulfate 2.5 mg/3 mL (0.083 %) solution for nebulization 2.5 mg inhalation QID PRN Lung/Breathing Issues 05/27/24
guselkumab 100 mg/mL subcutaneous auto-injector (Tremfya) 100 mg SC Q8W Antipsoriatic Agent 05/27/24
albuterol sulfate 90 mcg/actuation aerosol inhaler 2 puff inhalation Q6H PRN asthma 07/25/24
budesonide 0.25 mg/2 mL suspension for nebulization 0.5 mg inhalation BID PRN asthma flare 08/01/24
insulin aspart U-100 100 unit/mL subcutaneous solution (Novolog U-100 Insulin aspart) 0 unit SC Q1H 08/01/24
insulin aspart U-100 100 unit/mL subcutaneous solution (Novolog U-100 Insulin aspart) 1 sliding scale dose SC DIRECTED 08/01/24
latanoprost 0.005 % eye drops 1 drp ophthalmic (eye) QPM 08/01/24
acetaminophen 500 mg tablet 1,000 mg (2 x 500 mg) PO QID #0 tabs 09/08/24
aspirin 325 mg tablet 325 mg PO DAILY blood clot prevention #1 tab 09/08/24
cefadroxil 500 mg capsule 500 mg PO BID infection prevention #14 caps 09/08/24
docusate sodium 100 mg capsule (Colace) 100 mg PO BID stool softner #1 cap 09/08/24
gabapentin 100 mg capsule 100 mg PO TID #1 cap 09/08/24
magnesium hydroxide 400 mg/5 mL oral suspension (Milk of Magnesia) 30 ml PO HS PRN Constipation #1 mL 09/08/24
mupirocin 2 % topical ointment 1 applic topical BID infection prevention/hx MRSA #1 tube 09/08/24
ondansetron 4 mg disintegrating tablet 4 mg PO Q6H PRN n/v #20 tabs 09/08/24
oxycodone 5 mg tablet 5 mg PO Q6H PRN 1 tab moderate pain, 2 tabs severe pain #30 tabs 09/08/24
sennosides 8.6 mg tablet (Senokot) 17.2 mg (2 x 8.6 mg) PO BID laxative #2 tabs 09/08/24
Home Medication Changes
acetaminophen 500 mg tablet 1,000 mg (2 x 500 mg) PO QID #0 tabs 09/08/24
aspirin 325 mg tablet 325 mg PO DAILY blood clot prevention #1 tab 09/08/24
cefadroxil 500 mg capsule 500 mg PO BID infection prevention #14 caps 09/08/24
docusate sodium 100 mg capsule (Colace) 100 mg PO BID stool softner #1 cap 09/08/24
gabapentin 100 mg capsule 100 mg PO TID #1 cap 09/08/24
magnesium hydroxide 400 mg/5 mL oral suspension (Milk of Magnesia) 30 ml PO HS PRN Constipation #1 mL 09/08/24
mupirocin 2 % topical ointment 1 applic topical BID infection prevention/hx MRSA #1 tube 09/08/24
ondansetron 4 mg disintegrating tablet 4 mg PO Q6H PRN n/v #20 tabs 09/08/24
oxycodone 5 mg tablet 5 mg PO Q6H PRN 1 tab moderate pain, 2 tabs severe pain #30 tabs 09/08/24
sennosides 8.6 mg tablet (Senokot) 17.2 mg (2 x 8.6 mg) PO BID laxative #2 tabs 09/08/24
Pending Results: No
--- NOTE | 2024-09-08 12:03 | OR.RPT ---
Operative Report
Operative Report
Orthopaedic Surgery Operative Note
DATE OF OPERATION: 09/08/2024
PREOPERATIVE DIAGNOSES: Osteoarthritis, right knee.
POSTOPERATIVE DIAGNOSES: Osteoarthritis, right knee.
OPERATION PERFORMED:
1) Right total knee arthroplasty (CPT 66240)
2) Intraosseous administration of analgesic (CPT 58007)
SURGEON: Nik Ocampo MD
ASSISTANTS: Flaco Bajwa PA-C who helped with patient and limb positioning and retraction
ANESTHESIA: Spinal by anesthesia plus intraoperative infusion of morphine into the tibial metaphysis by Dr. Ocampo
COMPLICATIONS: None.
ESTIMATED BLOOD LOSS: 20mL
DRAINS: None
TOURNIQUET TIME: 43 minutes.
IMPLANTS:
- Tsering Persona CR Femur, size 7
- Tsering Persona tibia base plate, size D
- Tsering Persona ultracongruent articular surface, 10 mm
- All-polyethylene patellar component, size 32
- DJO Dodge bone cement
INDICATIONS: The patient presented to my office with debilitating right knee pain due to osteoarthritis. We reviewed the natural history of this problem, as well as the risks, benefits, and alternatives of various treatment options. The patient
exhausted all nonoperative treatment options and wished to proceed with knee replacement surgery. The patient understood the risks which included, but were not limited to, bleeding, infection, failure to relieve pain, more pain than preop, damage to
blood vessels and nerves, need for reoperation, mechanical failure of the implants, wound healing problems, stiffness, instability, blood clot, pulmonary embolism, myocardial infarction, pneumonia, arrhythmia, CVA, and . The patient accepted
these risks and wished to proceed. All questions were answered, and informed consent was obtained.
PROCEDURE IN DETAIL: The patient was identified in the preoperative holding area. The right knee was identified as the operative site. The patient was taken in the operating room and placed in a supine position on the operating table. Spinal
anesthesia was performed. IV antibiotics and tranexamic acid were administered. An SCD was placed on the left lower extremity. A well-padded tourniquet was placed on the proximal thigh. All bony prominences were well padded. The right lower
extremity was prepped and draped in the usual sterile fashion.
We performed a surgical time-out. An interarticular block was performed with local anesthetic with epinephrine. The limb was exsanguinated with an Esmarch bandage, then the tourniquet was inflated to 250 mmHg. I performed interosseous administration
of morphine-saline solution via a Jamshidi style intraosseous needle into the proximal medial tibial metaphysis as described by Lalo Goddard MD. This was performed to aid in pain control. A midline skin incision was made followed by a medial
parapatellar arthrotomy. A subperiosteal peel was performed on the medial tibia. I excised part of the infrapatellar fat pad to improve our visualization as well as tissue over anterior femur. The patella was everted and the knee was flexed. I
excised the remnants of the anterior and posterior cruciate ligaments as well as tibial and femoral osteophytes with rongeurs.
The knee was flexed, and the extramedullary tibial cutting guide was aligned. [place] was aligned at neutral, rotation was centered on the tibial tubercle, and coronal alignment was aligned with the mechanical axis of the tibia and center of the ankle
joint. The cut height was 10mm off the lateral tibia joint surface. The guide was secured into place. The MCL and LCL were protected. The tibia surface was cut. The cut surface was inspected after removal to ensure appropriate height and slope based
on the preoperative plan. The cut was checked with a drop tam. It was centered nicely at the ankle.
A drill was used to open the femoral canal. The intramedullary distal femoral cutting guide was inserted into the femur. This was set at 5 degrees +1. This was secured into place with three pins. The cut level was checked with an letha wing. The
distal femur was cut through the cutting guide. The IM guide was reinserted to double check that the level of resection was flush and in appropriate alignment.
[place]�s line and the transepicondylar axis were marked on the femur. The femoral sizing guide was applied to the anterior femur. Pins were inserted, and the 4-in-1 cutting guide was applied and secured into place. The rotation was compared to
[place]�s line, the transepicondylar axis, and the neutral tibia cut and was found to be appropriate. The width was checked and found to be appropriate and lateralized on the femur. The anterior, posterior, and chamfur cuts were made. A lamina
manager of engineering was used to open the flexion gap, and posterior osteophytes were removed with a curved osteotome. The remnant medial and lateral meniscus were also removed. I prophylactically cauterized the lateral geniculate arteries. A 10mm spacer block
was applied to the flexion gap and was noted to be balanced medially and laterally. The knee was extended, and the block showed symmetric to extension and flexion gaps.
The tibia was exposed and sized. Rotation was set in line with the tibial tubercle and congruent with the femur. The trial was secured into place with two pins. The trial femur was impacted into place, and a trial articular surface was placed. The
knee was taken through range of motion and noted to be stable throughout the arc of motion without gaping or excess tension. In extension, a measured resection of the patella was performed. The patella was sized, and lug holes were drilled. A trial
patella component was applied, and it was noted to track centrally throughout the arc of motion without need for further releases.
The trials were removed. The tibia keel was prepared with the punch and the drill. The bone surfaces were irrigated with sterile saline and dried. The cement was mixed in a vacuum mixer. Cement gun was used to apply cement to the tibial surface and
the undersurface of the tibial implant. Cement was pressurized into the tibial canal and tibia surface. The tibial component was impacted into place. Excess cement was removed. Cement was applied to the femoral surface and the femoral component. The
femoral component was impacted into place, and excess cement removed. A trial articular surface was inserted, and the knee was extended while the cement polymerized. The tourniquet was let down, and meticulous hemostasis was achieved. Dilute
betadine was poured into the wound and allowed to soak for 3 minutes. The knee was irrigated with copious normal saline.
Once the cement was polymerized, the trial articular surface was removed. Any excess cement was removed. The knee was trialed, and the final articular surface was selected and inserted into the tibial locking mechanism. The knee was reduced. A fresh
drape was applied to the surgical field.
The arthrotomy was closed with 0-PDS. Once closed, an interarticular block was performed with local anesthetic with epi. The deep dermal layer was closed with 2-0 PDS, and the subcuticular skin was closed with 3-0 monocryl. A Dermabond Prineo
dressing was applied to the skin in full flexion. Once this was completely dry, a sterile waterproof dressing was applied.
The anesthesia team performed an adductor canal block in the OR. The patient awoke from anesthesia without any difficulties. The sponge and instrument counts were correct x2 at the end of the case.
Fahad Ocampo MD
[2024-09-08 12:16] LABS: Glucose - Point of Care 177 mg/dl (70-99)
[2024-09-08] MEDS: XOPENEX 0.63 MG INHALANT SOLUTION INH ×2 (12:48→20:27)
[2024-09-08] MEDS: ROXICODONE 5 MG PO (13:08)
[2024-09-08 14:58] LABS: Glucose - Point of Care 245 mg/dl (70-99)
[2024-09-08] MEDS: ANCEF 5 IV (16:59)
[2024-09-08] MEDS: ROXICODONE 10 MG PO ×2 (17:03→21:08)
[2024-09-08 17:28] LABS: Glucose - Point of Care 296 mg/dl (70-99)
[2024-09-08] MEDS: NOVOLOG FLEXPEN-MODERATE RESISTANCE SC (17:39)
[2024-09-08] MEDS: EFFEXOR XR 150 MG PO (17:40)
[2024-09-08] MEDS: CRESTOR 40 MG PO (17:40)
[2024-09-08] MEDS: ASPIRIN 325 MG PO (17:40)
--- NOTE | 2024-09-08 17:46 | RESPNOTE ---
dicussed cpap with patient in PACU and now in Room 2108. patient agreeable to hospital unit. patient wears cpap +8 with 2L, med full mask.
--- NOTE | 2024-09-08 19:24 | PTCARENOTE ---
late entry: pt admitted to room 2108 at 1530 from PACU. pt arrived via bed, awake and alert. assisted Out of bed with PT, ambulated w/RW to BR, voided and assisted to Chair. tolerated OOB for dinner and assisted to return to bathroom and bed
w/RW and assist of 1. admission database and assessment completed as documented. pt oriented to room , environment and plan of care with verbalized understanding. pt educated and provided with insulin worksheet-refused sliding scale insulin
coverage. care ongoing.
[2024-09-08] MEDS: BACTROBAN 2% OINTMENT 1 APPLIC NASAL (19:40)
[2024-09-08] MEDS: FLEXERIL 5 MG PO (19:41)
[2024-09-08] MEDS: NEURONTIN 300 MG PO (19:41)
[2024-09-08] MEDS: COLACE 100 MG PO (19:41)
[2024-09-08] MEDS: SENOKOT 17.2 MG PO (19:41)
[2024-09-08] MEDS: ULTRAM 50 MG PO (19:41)
[2024-09-08] MEDS: PULMICORT 0.25 MG INH (20:43)
[2024-09-08] MEDS: VANCOCIN 200 IV (21:29)
[2024-09-08] MEDS: XALATAN OPHTHALMIC SOLUTION 1 DROP BOTH EYES (21:31)
[2024-09-08 22:04] LABS: Glucose - Point of Care 298 mg/dl (70-99)
[2024-09-09] MEDS: TYLENOL PO (00:31)
[2024-09-09 00:32] VITALS: BP 124/68
[2024-09-09] MEDS: ANCEF 5 IV (01:55)
[2024-09-09] MEDS: TYLENOL 650 MG PO ×3 (04:13→11:03)
[2024-09-09 04:32] VITALS: BP 116/72
[2024-09-09 07:12] VITALS: BP 118/65
[2024-09-09 07:16] LABS: Glucose - Point of Care 147 mg/dl (70-99)
[2024-09-09] MEDS: XOPENEX 1.25 MG INHALANT SOLUTION INH ×2 (07:28→11:32)
[2024-09-09] MEDS: PULMICORT 0.25 MG INH (07:29)
[2024-09-09] MEDS: NOVOLOG FLEXPEN-MODERATE RESISTANCE SC (07:32)
[2024-09-09] MEDS: ULTRAM 50 MG PO (07:57)
[2024-09-09] MEDS: COLACE 100 MG PO (07:57)
[2024-09-09] MEDS: NEURONTIN 300 MG PO (07:57)
[2024-09-09] MEDS: FLEXERIL 5 MG PO (07:57)
[2024-09-09] MEDS: ASPIRIN 325 MG PO (07:57)
[2024-09-09] MEDS: SENOKOT 17.2 MG PO (07:57)
[2024-09-09] MEDS: BACTROBAN 2% OINTMENT 1 APPLIC NASAL (07:58)
[2024-09-09 11:05] VITALS: BP 108/61; BP 124/72; PULSE 95; O2SAT 98
--- NOTE | 2024-09-09 11:06 | W.PN.ORTHO ---
Today's Communication / Plan
-
d/c
Assessment
.
Distal Motor Intact: Yes
Dressing:
Clean, dry and intact.
Assessment:
NEHA
Asthma
Hx bronchitis requiring admission
-Incentive spirometry+ standing order nebs+ cpap--O2 sats stable on RA
Morbid Obesity
Type 2 IDDM-A1C 7.7
-has indwelling insulin pump-add Novolog coverage given hyperglycemic effect of surgery and infection risk
-+Cefadroxil ppx outpatient
Psoriatic arthritis--hold Tremfya 3 weeks p/o due to immunosuppression
Hx MRSA-Vanco w/ Ancef [id number] intranasal Mupirocin
CKD 3-avoid nephrotoxic agents
Urinary incontinence/retention-indwelling bladder stim-monitor voids
Plan
.
Surgery / Date: R MALICK Ocampo 09/08/24
DVT Prophylaxis: Aspirin
Activity:
Out of bed.
PT/OT
Discharge Plan: Home w/ Outpatient PT
Subjective
.
.:
Patient resting comfortably.
Vital Signs and Labs
.
Vital Signs and Labs:
Lab Results
08/10/24 09:01
08/10/24 09:01
Temp Pulse Resp BP Pulse Ox
98 F 92 20 118/65 94
09/09/24 07:12 09/09/24 07:31 09/09/24 07:31 09/09/24 07:12 09/09/24 08:00
Non-invasive Hgb result: 13.6
Physical Exam
-
HEENT: No pallor, cyanosis, or jaundice. Throat clear.
NECK: Supple. No JVD.
RESPIRATORY: Lungs clear to auscultation.
CVS: S1, S2 normal. RRR.� No murmur, rub or gallop.
ABDOMEN: Soft, non-tender. No distension. BS+/normal.
EXTREMITIES: strength equal, no calf pain with palpation
CLIMATOLOGIST: AOx3. No focal deficits. appliance servicer grossly intact
[2024-09-09 11:17] VITALS: BP 110/65
--- NOTE | 2024-09-09 11:48 | CM ---
Met with pt at bedside
Pt reports she lives with her in a 2 story home; 1 step to enter, FF set-up
Independent at baseline, employed FT, drives
DME - CPAP, oxygen concentrator with [employer], rolling walker, single point cane, raised toilet seat, commode, toilet rails
SNF/HH - denies past hx
Has ride at discharge
PCP - Pranay Donahue
Pharm - [facility]
Pt reports she has an appt on 09/12 at [facility] for outpatient PT. Reports has Rx and will have transportation
Given IMM
Plan - home with outpatient PT
[2024-09-09 11:50] LABS: Glucose - Point of Care 208 mg/dl (70-99)
[2024-09-09] MEDS: ROXICODONE 10 MG PO (12:04)
[2024-09-09] MEDS: NOVOLOG FLEXPEN-MODERATE RESISTANCE 3 UNITS SC (12:05)
[2024-09-09 13:17] VITALS: BP 114/54; PULSE 109; O2SAT 99
--- NOTE | 2024-09-09 13:56 | PN.DE.MGMTRT ---
Insulin Management
- -
09/09/2024 Diabetes Consult for insulin pump.
Patient admitted for R TKR, POD 1. Prior to admission was using Tandem pump with novolog insulin and AutoSoft XC infusion sets with SCP Events G 7 sensor.
Pump is functioning, current glucose 202. Patient states nurse just gave her a correction injection so she will not take additional insulin Pump settings as follows:
Basal Correction CHO ratio
12am 2.5 20 5
5am 2.5 18 4.5
12pm 2.5 18 3.5
5pm 2.99 18 4
24 hour basal total 63.43
Patient for discharge this afternoon. Will continue to manage glucose with pump, corrective insulin discontinued.
Discussed with nurse.
Diabetes History
- -
Type of Diabetes: 2 requiring insulin
Pre-Admission Diabetes Regimen
Lab Results
Hemoglobin A1c 7.7 % (4.0-5.6) H 08/10/24 09:01
Insulin Pump Settings
IP Diabetes Regimen
09/08/24 09/08/24 09/08/24
14:57 17:24 22:03
POC Glucose 245 H 296 H 298 H
09/09/24 09/09/24
07:14 11:48
POC Glucose 147 H 208 H
Meal type: Lunch
Meal type: Breakfast
Amount consumed: 100%
Amount consumed: 100%
Patient Education
== END 2024-09-09 14:58 | disposition home or self-care (01) | DRG 470 ==
LOC: 2 SOUTH 09:14
PROVIDERS: ADMITTING PHYSICIAN Orthopaedic Surgery; FAMILY PHYSICIAN Physician Assistant Medical; REFERRING PHYSICIAN Internal Medicine Cardiovascular Disease
PROC: 0SRC0J9 Replacement of Right Knee Joint with Synthetic Substitute, Cemented, Open Approach (ICD-10-PCS; 2024-09-08)
DX: M17.11 Unilateral primary osteoarthritis, right knee (principal); F32.1 Major depressive disorder, single episode, moderate; D84.821 Immunodeficiency due to drugs; I12.9 Hypertensive chronic kidney disease with stage 1 through stage 4 chronic kidney disease, or unspecified chronic kidney disease; E11.22 Type 2 diabetes mellitus with diabetic chronic kidney disease; N18.30 Chronic kidney disease, stage 3 unspecified; G47.33 Obstructive sleep apnea (adult) (pediatric); E78.2 Mixed hyperlipidemia; F41.9 Anxiety disorder, unspecified; J45.50 Severe persistent asthma, uncomplicated; M85.80 Other specified disorders of bone density and structure, unspecified site; L40.50 Arthropathic psoriasis, unspecified; E66.01 Morbid (severe) obesity due to excess calories; R26.2 Difficulty in walking, not elsewhere classified; Z96.41 Presence of insulin pump (external) (internal); Z79.620 Long term (current) use of immunosuppressive biologic; Z79.51 Long term (current) use of inhaled steroids; Z79.4 Long term (current) use of insulin; Z99.81 Dependence on supplemental oxygen; Z68.38 Body mass index [BMI] 38.0-38.9, adult
CPT/HCPCS: 36415; 73560; 80053; 82962; 83036; 85027; 87070; 87147; 94640; 94660; 97116; 97162; 97166; 97530; C1713; C1776

== ENCOUNTER → 2025-03-23 09:09 | Outpatient (REF) | payer BC, SELFPAY ==
--- NOTE | 2025-03-23 10:45 | CARDSERVDEF ---
Echocardiogram with Definity completed after protocol screening completed. Allergies verified.
Patent IV site: _Right median antecubital 22 G PC____
IV site flushed with 0.9% NaCl pre and post administration.
Diluted bolus method utilized to enhance visualization of ventricular esquivel.
Total volume given: _2___ mL
Patient tolerated all procedures well without complications.
Heplock D/C ed at 1040, site clear, no redness, no edema. Pressure held, no bleeding, 2x2 applied and taped. Pt offers no complaints.
== END ==
LOC: RCS 09:09
PROVIDERS: ATTENDING PHYSICIAN Internal Medicine Cardiovascular Disease; FAMILY PHYSICIAN Physician Assistant Medical
DX: R06.09 Other forms of dyspnea (principal); E66.01 Morbid (severe) obesity due to excess calories; I10 Essential (primary) hypertension; R60.0 Localized edema
CPT/HCPCS: 93307; Q9957

== ENCOUNTER → 2025-03-28 08:48 | Outpatient (REF) | payer BC, SELFPAY | LOC: PET 08:48 | PROVIDERS: ATTENDING PHYSICIAN Internal Medicine Cardiovascular Disease | DX: R06.09 Other forms of dyspnea (principal); E11.22 Type 2 diabetes mellitus with diabetic chronic kidney disease; E66.01 Morbid (severe) obesity due to excess calories; I10 Essential (primary) hypertension | CPT/HCPCS: 78431; A9555; J2785 ==

== ENCOUNTER → 2025-04-19 09:48 | Outpatient (REF) | payer BC, SELFPAY | LOC: HWRAD 09:48 | PROVIDERS: ATTENDING PHYSICIAN Internal Medicine Gastroenterology; FAMILY PHYSICIAN Physician Assistant Medical | DX: K75.81 Nonalcoholic steatohepatitis (NASH) (principal) | CPT/HCPCS: 72070; 72100 ==

== ENCOUNTER → 2025-04-25 08:35 | Outpatient (REF) | payer BC, SELFPAY | LOC: PAVMRI 08:35 | PROVIDERS: ATTENDING PHYSICIAN Internal Medicine Gastroenterology; FAMILY PHYSICIAN Physician Assistant Medical | DX: K75.81 Nonalcoholic steatohepatitis (NASH) (principal) | CPT/HCPCS: 74183; 76391; A9575 ==

== ENCOUNTER → 2025-06-10 09:14 | Outpatient (REF) | payer MEDICARE, OTHER, SELFPAY | LOC: RAD 09:14 | PROVIDERS: ATTENDING PHYSICIAN Internal Medicine Critical Care Medicine; FAMILY PHYSICIAN Physician Assistant Medical | DX: R91.8 Other nonspecific abnormal finding of lung field (principal) | CPT/HCPCS: 71250 ==

== ENCOUNTER → 2025-09-08 13:18 | Outpatient (REF) | payer MEDICARE, OTHER, SELFPAY | LOC: DHSLP 13:18 | PROVIDERS: ATTENDING PHYSICIAN Internal Medicine Critical Care Medicine; FAMILY PHYSICIAN Physician Assistant Medical | DX: G47.33 Obstructive sleep apnea (adult) (pediatric) (principal); G47.61 Periodic limb movement disorder | CPT/HCPCS: 95811 ==